=== PATIENT | male | born 1975 | race Hispanic/Latino ===

== ENCOUNTER 2019-03-06 17:41 | Emergency (ER) | payer SELFPAY ==
[~2019-03-06] VITALS: Ht 165.1 cm; Wt 94.4 kg
[2019-03-06 18:40] LABS: HEMATOCRIT 44.8 % (39.0-50.0); HEMOGLOBIN 15.3 g/dl (14.0-18.0); IMMATURE GRANULOCYTES 0.4 % (0.0-5.0); MEAN CELL VOLUME 92.2 fL CALC (80.0-100.0); MEAN CORPUSCULAR HGB 31.5 pG CALC (26.0-32.0); MEAN CORPUSCULAR HGB CONC 34.2 g/L CALC (32.0-36.0); NEUT# 7.91 thou/uL (1.82-7.42); RED BLOOD COUNT 4.86 mill/uL (4.70-6.10); RED CELL DISTRI WIDTH 13.2 % (11.5-15.5)
[2019-03-06 18:46] LABS: ALBUMIN 4.5 g/dL (3.2-5.0); ALKALINE PHOSPHATASE 73 u/l (38-126); AMYLASE 77 u/l (30-110); ANION GAP 14 (6-22 (CALC)); BILIRUBIN, TOTAL 0.6 mg/dL (0.0-1.4); BUN 15 mg/dL (9-20); BUN/CREATININE RATIO 18 (12-20 (CALC)); CARBON DIOXIDE 28 mmol/l (22-30); CHLORIDE 101 mmol/l (95-108); CREATININE 0.8 mg/dL (0.7-1.3); ETHYL ALCOHOL 0 mg/dl (0-30); GFR > 60 ML/MIN (>=60 (CALC)); GFR FOR AFR.AMER. > 60 ML/MIN (>=60 (CALC)); LIPASE 97 u/l (23-300); POTASSIUM 3.9 mmol/l (3.5-5.1); SGOT/AST 37 u/l (17-59); SODIUM 139 mmol/l (137-146); TOTAL PROTEIN 7.7 g/dL (6.3-8.2)
[2019-03-06 18:57] LABS: MYOGLOBIN 56 ng/mL (0 - 121)
[2019-03-06 20:33] LABS: URINE BILIRUBIN - DIPSTICK NEGATIVE (NEGATIVE); URINE BLOOD DIPSTICK NEGATIVE (NEGATIVE); URINE COLOR YELLOW; URINE GLUCOSE - DIPSTICK NEGATIVE (NEGATIVE); URINE KETONE NEGATIVE (NEGATIVE); URINE LEUK ESTERASE NEGATIVE (NEGATIVE); URINE NITRITE - DIPSTICK NEGATIVE (Negative); URINE PH 5.5 (4.5-8.0); URINE PROTEIN - DIPSTICK NEGATIVE (NEG-TRACE); URINE UROBILINOGEN - DIPSTICK 0.2 E.U./dL (0.2)
[2019-03-06 20:37] LABS: BARBITURATES NEGATIVE (NEGATIVE); COCAINE NEGATIVE (NEGATIVE); METHADONE NEGATIVE (NEGATIVE); OXCYCODONE NEGATIVE (NEGATIVE); TETRAHYDROCANNABIONOL NEGATIVE (NEGATIVE); TRICYLIC ANTIDEPRESSANTS NEGATIVE (NEGATIVE)
[2019-03-06] MEDS ORDERED: PROTONIX40 MG PO (20:45)
[2019-03-06 21:25] VITALS: BP 97/68
== END 2019-03-06 21:25 | disposition home or self-care (01) | DRG 392 ==
LOC: ED 17:41
DX: K29.70 Gastritis, unspecified, without bleeding (principal)

== ENCOUNTER 2019-10-01 08:42 | Emergency (ER) | payer SELFPAY ==
[~2019-10-01 08:42] MED LIST: PROTONIX40 MG PO
[2019-10-01 09:16] LABS: HEMATOCRIT 48.4 % (39.0-50.0); HEMOGLOBIN 16.5 g/dl (14.0-18.0); IMMATURE GRANULOCYTES 0.2 % (0.0-5.0); MEAN CELL VOLUME 92.4 fL CALC (80.0-100.0); MEAN CORPUSCULAR HGB 31.5 pG CALC (26.0-32.0); MEAN CORPUSCULAR HGB CONC 34.1 g/dL CAL (32.0-36.0); NEUT# 2.08 thou/uL (1.82-7.42); RED BLOOD COUNT 5.24 mill/uL (4.70-6.10)
[2019-10-01 09:33] LABS: ALBUMIN 4.3 g/dL (3.2-5.0); ALKALINE PHOSPHATASE 66 u/l (38-126); ANION GAP 12 (6-22 (CALC)); BILIRUBIN, TOTAL 0.5 mg/dL (0.0-1.4); BUN 9 mg/dL (9-20); BUN/CREATININE RATIO 12 (12-20 (CALC)); C-REACTIVE PROTEIN 0.9 mg/dL (0-0.9); CARBON DIOXIDE 24 mmol/l (22-30); CHLORIDE 105 mmol/l (95-108); CREATININE 0.8 mg/dL (0.7-1.3); GFR > 60 ML/MIN (>=60 (CALC)); GFR FOR AFR.AMER. > 60 ML/MIN (>=60 (CALC)); LIPASE 132 u/l (23-300); POTASSIUM 4.1 mmol/l (3.5-5.1); SGOT/AST 56 u/l (17-59); SODIUM 137 mmol/l (137-146); TOTAL PROTEIN 7.3 g/dL (6.3-8.2)
[2019-10-01 09:35] LABS: URINE BILIRUBIN - DIPSTICK NEGATIVE (NEGATIVE); URINE BLOOD DIPSTICK NEGATIVE (NEGATIVE); URINE COLOR YELLOW; URINE GLUCOSE - DIPSTICK NEGATIVE (NEGATIVE); URINE KETONE NEGATIVE (NEGATIVE); URINE LEUK ESTERASE NEGATIVE (NEGATIVE); URINE NITRITE - DIPSTICK NEGATIVE (Negative); URINE PH 7.5 (4.5-8.0); URINE PROTEIN - DIPSTICK 30 mg/dL (NEG-TRACE); URINE UROBILINOGEN - DIPSTICK 0.2 E.U./dL (0.2)
[2019-10-01 09:36] LABS: URINE RBC 0-2 RBC/hpf (0-5); URINE WBC 0-2 WBC/hpf (0-5)
[2019-10-01 11:00] VITALS: BP 128/80
--- NOTE | 2019-10-04 12:40 | NUR ---
Notified patient of postive Covid results via cmm programmer Pedro Pablo Craft. Advised patient to stay at home under quarantine until the [facility] contacts him with further instructions. Advised patient to return to ED with elevated temperature or difficulty breathing. Patient verbalized understanding. Chart faxed to [facility] [phone].
== END 2019-10-01 11:15 | disposition home or self-care (01) | DRG 179 ==
LOC: ED 08:42
PROVIDERS: Family Medicine
DX: U07.1 COVID-19 (principal)

== ENCOUNTER 2020-09-27 12:15 | Emergency (ER) | payer SELFPAY ==
[~2020-09-27] VITALS: Ht 165.1 cm; Wt 94.0 kg
[2020-09-27] MEDS ORDERED: PROTONIX20 M1 PO (12:50)
[2020-09-27 13:20] LABS: HEMATOCRIT 49.4 % (39.0-50.0); HEMOGLOBIN 16.5 g/dl (14.0-18.0); IMMATURE GRANULOCYTES 0.5 % (0.0-5.0); MEAN CELL VOLUME 93.7 fL CALC (80.0-100.0); MEAN CORPUSCULAR HGB 31.3 pG CALC (26.0-32.0); MEAN CORPUSCULAR HGB CONC 33.4 g/dL CAL (32.0-36.0); NEUT# 14.4 thou/uL (1.82-7.42); RED BLOOD COUNT 5.27 mill/uL (4.70-6.10); RED CELL DISTRI WIDTH 13.2 % (11.5-15.5)
[2020-09-27 13:23] LABS: URINE BILIRUBIN - DIPSTICK NEGATIVE (NEGATIVE); URINE BLOOD DIPSTICK NEGATIVE (NEGATIVE); URINE COLOR YELLOW; URINE GLUCOSE - DIPSTICK NEGATIVE (NEGATIVE); URINE KETONE NEGATIVE (NEGATIVE); URINE LEUK ESTERASE NEGATIVE (NEGATIVE); URINE PH 6.5 (4.5-8.0); URINE PROTEIN - DIPSTICK 100 mg/dL (NEG-TRACE); URINE SPECIFIC GRAVITY 1.025
[2020-09-27 13:27] LABS: URINE EPITHELIAL CELLS FEW EPI/hpf (0-FEW); URINE MUCUS MODERATE hpf (NONE-FEW); URINE NITRITE - DIPSTICK NEGATIVE (Negative)
[2020-09-27 13:34] LABS: ALBUMIN 4.6 g/dL (3.2-5.0); ALKALINE PHOSPHATASE 65 u/l (38-126); AMYLASE 105 u/l (30-110); ANION GAP 12 (6-22 (CALC)); BUN 15 mg/dL (9-20); BUN/CREATININE RATIO 22 (12-20 (CALC)); CARBON DIOXIDE 28 mmol/l (22-30); CHLORIDE 100 mmol/l (95-108); CREATININE 0.7 mg/dL (0.7-1.3); ETHYL ALCOHOL 0 mg/dl (0-30); GFR > 60 ML/MIN (>=60 (CALC)); GFR FOR AFR.AMER. > 60 ML/MIN (>=60 (CALC)); LIPASE 82 u/l (23-300); POTASSIUM 3.8 mmol/l (3.5-5.1); SGOT/AST 94 u/l (17-59); SODIUM 136 mmol/l (137-146); TOTAL PROTEIN 8.6 g/dL (6.3-8.2)
[2020-09-27 13:35] LABS: BILIRUBIN, TOTAL 0.8 mg/dL (0.0-1.4)
[2020-09-27] MEDS ORDERED: ZOFRAN4 MG/TAB PO (15:59)
[2020-09-27] MEDS ORDERED: ULTRAM50 MG PO (15:59)
[2020-09-27] MEDS ORDERED: PEPCID20 MG PO (15:59)
[2020-09-27 16:01] VITALS: BP 128/72
== END 2020-09-27 16:07 | disposition home or self-care (01) | DRG 392 ==
LOC: ED 12:15
DX: K29.70 Gastritis, unspecified, without bleeding (principal); M54.9 Dorsalgia, unspecified; Z20.822 Contact with and (suspected) exposure to COVID-19
CPT/HCPCS: Q9967

== ENCOUNTER 2020-09-28 14:07 | Observation (INO) | payer SELFPAY ==
[~2020-09-28] VITALS: Ht 165.1 cm; Wt 90.0 kg
[~2020-09-28 14:07] MED LIST changes: +PEPCID20 MG PO; +PROTONIX20 M1 PO; +ULTRAM50 MG PO; +ZOFRAN4 MG/TAB PO
--- NOTE | 2020-09-28 14:40 | NUR ---
RESTING ON STRETCHER. CALL HUNTER WITHIN REACH.
[2020-09-28 15:10] LABS: HEMATOCRIT 47.3 % (39.0-50.0); HEMOGLOBIN 16.1 g/dl (14.0-18.0); IMMATURE GRANULOCYTES 0.5 % (0.0-5.0); MEAN CELL VOLUME 92.2 fL CALC (80.0-100.0); MEAN CORPUSCULAR HGB 31.4 pG CALC (26.0-32.0); NEUT# 15.24 thou/uL (1.82-7.42); RED BLOOD COUNT 5.13 mill/uL (4.70-6.10); RED CELL DISTRI WIDTH 13.2 % (11.5-15.5)
--- NOTE | 2020-09-28 15:30 | NUR ---
RESTING ON STRETCHER. CALL HUNTER WITHIN REACH.
[2020-09-28 15:48] LABS: ALBUMIN 4.4 g/dL (3.2-5.0); ALKALINE PHOSPHATASE 60 u/l (38-126); ANION GAP 13 (6-22 (CALC)); BUN 8 mg/dL (9-20); BUN/CREATININE RATIO 12 (12-20 (CALC)); CARBON DIOXIDE 28 mmol/l (22-30); CHLORIDE 95 mmol/l (95-108); CREATININE 0.7 mg/dL (0.7-1.3); GFR > 60 ML/MIN (>=60 (CALC)); GFR FOR AFR.AMER. > 60 ML/MIN (>=60 (CALC)); LIPASE 77 u/l (23-300); POTASSIUM 3.3 mmol/l (3.5-5.1); SGOT/AST 37 u/l (17-59); SODIUM 133 mmol/l (137-146); TOTAL PROTEIN 7.7 g/dL (6.3-8.2)
--- NOTE | 2020-09-28 16:30 | NUR ---
RESTING ON STRETCHER. CALL HUNTER WITHIN REACH. AWAITING DISPO
--- NOTE | 2020-09-28 17:07 | NUR ---
MLP at bedside to discuss clinical findings with pt
--- NOTE | 2020-09-28 17:30 | NUR ---
PT RESTING ON STRETCHER. CALL HUNTER WITHIN REACH.
--- NOTE | 2020-09-28 18:33 | NUR ---
SBAR PRINTED TO FLOOR
--- NOTE | 2020-09-28 18:37 | NUR ---
ATTEMPTED TO CALL REPORT TO [facility]. NO ANSWER
--- NOTE | 2020-09-28 18:52 | NUR ---
REPORT GIVEN TO PACO ODONNELL TO BE TRANSFERRED TO FLOOR
--- NOTE | 2020-09-28 19:05 | NUR ---
PT ARRIVES TO UNIT VIA WHEELCHAIR, ACCOMPANIED BY Mike RANKIN LPN @ [phone]. PT TPP ROOM [id number].
[2020-09-28 19:30] VITALS: BP 112/77
--- NOTE | 2020-09-28 19:30 | NUR ---
ADMISSION AND ASSESMENT COMPLETE, SEE ADMISSION ASSESMENT. PT REPORTS ABD PAIN 12/18. DENIES N/V/D. LAST BM 09/27 IN AM. PT DESCRIBES "NORMAL". TELEMETRY #[id number] ON PT. R-AC #20G INTACT AND SALINE LOCKED. PT ORIENTED TO UNIT, ROOM AND PLAN OF CARE. PT ONLY REQUESTING ANALGESIC MEDICATION, DENIES FURTHER NEEDS AT THIS TIME. PT MADE AWARE PROVIDER WOULD NEED TO BE CONTACTED FOR ANALGESIC ORDER. PT VERBALIZES UNDERSTANDING. CALL HUNTER WITHIN REACH, PT AGREES TO CALL PRN. BED LOCKED IN LOW POSITION WITH BEDRAILS UP X2.
--- NOTE | 2020-09-28 19:35 | NUR ---
DR. BUSTOS CONTACTED FOR FURTHER ORDERS AND WITH PT ASSESMENT INFORMATION. CPOE ORDERS PENDING PER DR. BUSTOS.
--- NOTE | 2020-09-28 20:20 | NUR ---
PT APPEARS TO HAVE FALLEN ASLEEP, EYES CLOSED, GENTLY SNORING. WAKES EASILY TO VERBAL STIMULI. SCHEDULED MEDICATION ADMINISTERED, SEE E-MAR. 9% NACL @100ML/H INFUSION INITIATED TO R-AC #20G. SEE E-MAR. SITE PATENT. MORPHINE 2MG IV ADMINISTERED FOR REPORTED ABDOMINAL PAIN, RATED 8/10 BY PT. SEE E-MAR. EDUCATION PROVIDED ON ALL ADMINISTERED MEDICATIONS PRIOR TO ADMINISTRATION. PT VERBALIZES UNDERSTANDING.
--- NOTE | 2020-09-28 20:56 | NUR ---
PT APPEARS TO HAVE FALLEN ASLEEP AGAIN. LATING IN BED IN SEMIFOWLERS POSITION. GENTLY SNORING, RESPIRATIONS REGULAR AND UNLABORED, NO APPARENT DISTRESS. APPEARS COMFORTABLE. CALL HUNTER REMAINS WITHIN REACH.
[2020-09-28 23:45] VITALS: BP 127/77
--- NOTE | 2020-09-29 01:00 | NUR ---
PT APPEARS TO BE SLEEPING COMFORTABLY, LAYING IN BED WITH EYES CLOSED, RESPIRATIONS REGUALR AND UNLABORED, NO APPARENT DISTRESS. CALL HUNTER REMAINS WITHIN REACH.
[2020-09-29 04:00] VITALS: BP 117/65
--- NOTE | 2020-09-29 04:32 | NUR ---
MORPHINE ADMINISTERED FOR C/O ABD PAIN 12/18, SEE E-MAR.
--- NOTE | 2020-09-29 07:00 | NUR ---
RECIEVED REPORT FROM ANDRÉS BARRETO
[2020-09-29 07:16] VITALS: BP 127/72
--- NOTE | 2020-09-29 07:16 | NUR ---
PT RESTING IN SEMI FOWLERS POSITION. PT IS A/O X3 AND MOSTLY MALDIVIAN SPEAKING. ASSESSMENT AND VITALS COMPLETED. BP 127/72. HR 105, O2 92% ON ROOM AIR. RESPIRATIONS ARE EVEN AND UNLABORED WITH NO DISTRESS NOTED. LUNG SOUNDS ARE CLEAR. HEART RHYTHM IS NORMAL WITH TELE IN PLACE. BOWEL SOUNDS ARE HYPOACTIVE. RADIAL AND PEDAL PULSES ARE STRONG. #20G IN RAC INFUSING WITH IVF PER ORDER, SITE REMAINS HEALTHY AND PATENT. SKIN INTACT. PT COMPLAINS OF 9/10 LEFT ABD PAIN, PT TO BE MEDICATED PER EMAR. PT REQUEST FOR SOMETHING TO DRINK. PT EDUACTED ON DIET, ICE CHIPS GIVEN. PT VERBALIZED UNDERSTANDING. ALL SAFETY PRECAUTIONS ARE IN PLACE WITH CALL LIGHT IN REACH. WILL CONTINUE TO MONITOR.
--- NOTE | 2020-09-29 09:36 | NUR ---
DR BUSTOS AT BEDSIDE
--- NOTE | 2020-09-29 10:01 | NUR ---
FABRICATION INSPECTOR NOTIFIED OF HR IN 120'S AND 130'S BY ROSA RAMESH MONITOR. PT WALKING BACK FROM BATHROOM UPON ENTERING ROOM. PT COMPLAINS OF 8/10 RIGHT ABD PAIN. TORADOL ADMINISTERED. PT DENIES OF ANY OTHER NEEDS. ALL SAFETY PRCAUTIONS ARE IN PLACE WITH CALL LIGHT IN REACH. WILL CONTINUE TO MONITOR.
[2020-09-29 10:30] VITALS: BP 119/64
--- NOTE | 2020-09-29 10:36 | NUR ---
PANTOGRAPH ENGRAVER VICKI OF PT HR. NOTIFIED OF PT HR SUSTAINING IN 1TEENS. NO NEW ORDERS OBTAINED.
--- NOTE | 2020-09-29 10:48 | NUR ---
REASSESSMENT OF PAIN RESULTING IN 10/18. PT STATES TORADOL HAS HELPED.
--- NOTE | 2020-09-29 12:15 | NUR ---
PT SITTING UP IN RECYLINER WATCHING TV. REPSIRATIONS ARE EVEN AND UNLABORED WITH NO DISTRESS NOTE. #20G IN RAC INFUSING WITH IVF PER ORDER, SITE REMAINS HEALTHY AND PATENT. TELE MONITORING IN PLACE. PT DENIES OF ANY PAINS OR DISCOMFORTS AT THIS TIME. ALL SAFETY PRCAUTIONS ARE IN LACE WITH CALL LIGHT IN REACH. WILL CONTNUE TO MONITOR.
[2020-09-29 14:31] VITALS: BP 112/64
--- NOTE | 2020-09-29 16:14 | NUR ---
PT SITTING UP IN CHAIR. RESPIRAITONS ARE EVEN AND UNLABORED WITH NO DISTRESS NOTED. #20G IN RAC INFUSING WITH IVF PER ORDER, SITE REMAINS HEALTHY AND PATENT. PT DENIES OF ANY PAINS OR DISCOMFORTS AT THIS TIME. ALL SAFETY PRECAUTIONS ARE IN PLACE WITH CALL LIGHT IN REACH. WILL CONTINUE TO MONITOR.
--- NOTE | 2020-09-29 19:18 | NUR ---
PT AWAKE WATCHING TV, DENIES PAIN AT THIS TIME. PT REPORTS BEING FINISHED WITH DINNER TRAY, 50% OF FOOD INTAKE, TOLERATING WELL. DENIES ANY NEEDS AT THIS TIME. CALL LIGHT AT SIDE W/IN REACH AND PT HAS BEEN ENCOURAGED TO CALL NEEDS ARISE, VERBALIZED UNDERSTANDING.
[2020-09-29 19:30] VITALS: BP 110/68
--- NOTE | 2020-09-29 23:30 | NUR ---
MACHINED PARTS METAL SPRAYER REPORTED LOW BP ON PT AND PAIN 3/10 ON PAIN SCALE. MANUAL BP ASSESSED BY HADOOP INFRASTRUCTURE ARCHITECT TO BE 98/65. WILL WAIT AND REASSESS BP FOR PAIN MEDICATION.
--- NOTE | 2020-09-29 23:42 | NUR ---
PT WAS SLEEPING BUT AWOKE TO MY ENTERING THE ROOM. REPORTS PAIN AT 3/10 ON R.SIDE OF FLANK. IVF REPLENISHED AT THIS TIME. FUTURES TRADER IN ROOM OBTAINING V/S AT THIS TIME. PT DENIES ANY NEEDS AT THIS TIME.
[2020-09-29 23:50] VITALS: BP 98/65
[2020-09-30] VITALS: BP 98/65
[2020-09-30 00:38] VITALS: BP 102/64
--- NOTE | 2020-09-30 01:10 | NUR ---
PT BROUGHT TO MED SURG BY DATABASE DESIGN ANALYST ANDRÉS AND MED SURG ORTHOPEDIC PHYSICIAN. WE TRANSFERRED HER FROM THE STRETCHER TO THE BED. PT TOLERATED WELL. SHE C/O PAIN UPON MOVING R.ARM, SENSATIVE TO MOVEMENT IN R.SHOULDER SHE REPORTS. DATABASE DESIGN ANALYST DISCUSSED MED HISTORY AND PRESENT COMPLAINTS WITH DAUGHTER WHILE IN THE ED TO PICK PT UP TO TRANSFER TO THE FLOOR. PT ASSESSED AT THIS TIME AND V/S OBTAINED. NEURO'S APPEAR TO BE INTACT, NON DESTRUCTIVE TESTING SPECIALIST ARE MODERATE, BUT EQUAL, EQUAL MOVEMENT TO BLE W/OUT DRIFT. PUPILS EQUAL AND REACTIVE. NO VISIBLE DROOP TO MOUTH AND EYEBROWS APPEAR TO BE SEMETRICAL. PT LOCX4 AT THIS TIME. WILL OBTAIN TRANSLATION FROM ANDRÉS BARRETO [facility] STAFF NEEDED.
--- NOTE | 2020-09-30 02:26 | NUR ---
PT APPEARS TO BE SLEEPING, SONOROUS SOUNDS COMING FROM PT. RESP NON-LABORED. NO S/O DISTRESS NOTED.
[2020-09-30 04:00] VITALS: BP 97/61
--- NOTE | 2020-09-30 04:50 | NUR ---
V/S ASSESSED, PT WAS SLEEPING. NO S/O DISTRESS NOTED. CALL LIGHT AT SIDE AND PT ENCOURAGED TO CALL NEEDS ARISE.
--- NOTE | 2020-09-30 06:11 | NUR ---
PT REPORTS PAIN 2/10 ON PAIN SCALE IN R.FLANK
[2020-09-30 07:11] VITALS: BP 104/66
--- NOTE | 2020-09-30 07:11 | NUR ---
PATIENT AWAKE AND SITTING UP IN BED AT THIS TIME. PATIENT WHEN ASKED DENIES ANY PAIN AND STATES HIS PAIN IS A "0" OUT OF A PAIN SCALE OF 0-10. SKIING TEACHER DONE AT THIS TIME SEE INTERVENTIONS. TELE IN PLACE AND BEING MONITORED BY ED. PATIENT STATES "I WANT TO GO HOME TODAY". BOWEL SOUNDS ARE PRESENT IN ALL FOUR QUADRANTS AND ARE HYPOACTIVE. SIDERAILS ARE UP X 2 AND CALL LIGHT IS WITHIN REACH.
[2020-09-30 10:04] LABS: HEMATOCRIT 45.1 % (39.0-50.0); HEMOGLOBIN 15.2 g/dl (14.0-18.0); MEAN CELL VOLUME 94.4 fL CALC (80.0-100.0); MEAN CORPUSCULAR HGB 31.8 pG CALC (26.0-32.0); MEAN CORPUSCULAR HGB CONC 33.7 g/dL CAL (32.0-36.0); RED BLOOD COUNT 4.78 mill/uL (4.70-6.10); RED CELL DISTRI WIDTH 13.5 % (11.5-15.5)
[2020-09-30 10:18] LABS: ALBUMIN 3.6 g/dL (3.2-5.0); ALKALINE PHOSPHATASE 71 u/l (38-126); ANION GAP 12 (6-22 (CALC)); BILIRUBIN, TOTAL 0.6 mg/dL (0.0-1.4); BUN 16 mg/dL (9-20); BUN/CREATININE RATIO 20 (12-20 (CALC)); CARBON DIOXIDE 25 mmol/l (22-30); CHLORIDE 104 mmol/l (95-108); CREATININE 0.8 mg/dL (0.7-1.3); GFR > 60 ML/MIN (>=60 (CALC)); GFR FOR AFR.AMER. > 60 ML/MIN (>=60 (CALC)); POTASSIUM 3.6 mmol/l (3.5-5.1); SGOT/AST 26 u/l (17-59); SODIUM 137 mmol/l (137-146); TOTAL PROTEIN 7.1 g/dL (6.3-8.2)
[2020-09-30 10:20] VITALS: BP 107/66
[2020-09-30] MEDS ORDERED: IBUPROFEN600 MG PO (10:26)
[2020-09-30] MEDS ORDERED: MEDDOSEPAK PO (10:26)
[2020-09-30] MEDS ORDERED: ZITHROMAX500 MG PO (10:27)
--- NOTE | 2020-09-30 11:04 | NUR ---
Discharge instructions given. Patient verbalizes understanding of same. Discharged in stable condition via Ambulatory to Home with *Other. All belongings sent with pt. PATIENT D/C AT THIS TIME PATIENT TELE REMOVED AND ED NOTIFIED. IV CATH REMOVED AND CANNULA TIP INTACT. PATIENT VERBALIZES UNDERSTANDING OF DC INSTRUCTIONS.
== END 2020-09-30 11:04 | disposition home or self-care (01) | DRG 206 ==
LOC: ED 14:07 → ED-I 17:23 → ED 18:07 → MS2 18:08
PROVIDERS: ADMIT Internal Medicine; ATTEND Internal Medicine
DX: M94.0 Chondrocostal junction syndrome [Tietze] (principal); J98.11 Atelectasis; D72.829 Elevated white blood cell count, unspecified; Z20.822 Contact with and (suspected) exposure to COVID-19
CPT/HCPCS: G0378; J1650

== ENCOUNTER 2021-08-10 10:10 | Emergency (ER) | payer SELFPAY ==
[2021-08-10] VITALS (18 sets, daily range): BP systolic 118–172; BP diastolic 69–116
[~2021-08-10] VITALS: Ht 165.1 cm; Wt 104.0 kg
[~2021-08-10 10:10] MED LIST changes: +IBUPROFEN600 MG PO; +MEDDOSEPAK PO; +ZITHROMAX500 MG PO
[2021-08-10 11:18] LABS: HEMATOCRIT 46.8 % (39.0-50.0); HEMOGLOBIN 16.1 g/dl (14.0-18.0); IMMATURE GRANULOCYTES 0.1 % (0.0-5.0); MEAN CELL VOLUME 94.7 fL CALC (80.0-100.0); MEAN CORPUSCULAR HGB 32.6 pG CALC (26.0-32.0); MEAN CORPUSCULAR HGB CONC 34.4 g/dL CAL (32.0-36.0); NEUT# 13.19 thou/uL (1.82-7.42); RED BLOOD COUNT 4.94 mill/uL (4.70-6.10); RED CELL DISTRI WIDTH 12.8 % (11.5-15.5)
[2021-08-10 11:40] LABS: ACT PARTIAL THROMBO TIME 24.3 SECONDS (20.0-32.5); PROTHROMBIN TIME 10.4 SECONDS (9.0-12.5)
[2021-08-10 11:41] LABS: ALBUMIN 4.2 g/dL (3.2-5.0); ALKALINE PHOSPHATASE 59 u/l (38-126); AMYLASE 88 u/l (30-110); ANION GAP 13 (6-22 (CALC)); BILIRUBIN, TOTAL 0.6 mg/dL (0.0-1.4); BUN 11 mg/dL (9-20); BUN/CREATININE RATIO 15 (12-20 (CALC)); CARBON DIOXIDE 25 mmol/l (22-30); CHLORIDE 103 mmol/l (95-108); CREATININE 0.7 mg/dL (0.7-1.3); ETHYL ALCOHOL 0 mg/dl (0-30); GFR > 60 ML/MIN (>=60 (CALC)); GFR FOR AFR.AMER. > 60 ML/MIN (>=60 (CALC)); LIPASE 70 u/l (23-300); POTASSIUM 3.7 mmol/l (3.5-5.1); SGOT/AST 42 u/l (17-59); SODIUM 136 mmol/l (137-146); TOTAL PROTEIN 7.5 g/dL (6.3-8.2)
[2021-08-10 11:47] LABS: URINE BILIRUBIN - DIPSTICK NEGATIVE (NEGATIVE); URINE BLOOD DIPSTICK TRACE-INTACT (NEGATIVE); URINE GLUCOSE - DIPSTICK NEGATIVE (NEGATIVE); URINE KETONE NEGATIVE (NEGATIVE); URINE LEUK ESTERASE NEGATIVE (NEGATIVE); URINE PH 6.5 (4.5-8.0); URINE PROTEIN - DIPSTICK 100 mg/dL (NEG-TRACE); URINE SPECIFIC GRAVITY >=1.030; URINE UROBILINOGEN - DIPSTICK 0.2 E.U./dL (0.2)
[2021-08-10 11:50] LABS: URINE COLOR DK. YELLOW; URINE EPITHELIAL CELLS FEW EPI/hpf (0-FEW); URINE MUCUS MODERATE hpf (NONE-FEW); URINE NITRITE - DIPSTICK NEGATIVE (Negative); URINE RBC 0-2 RBC/hpf (0-5)
[2021-08-10] MEDS ORDERED: ZOFRAN4 MG/TAB PO (15:53)
[2021-08-10] MEDS ORDERED: LEVAQUIN750 M1 PO (15:53)
[2021-08-10] MEDS ORDERED: HYDROCO/APAP1 TA9 PO (15:53)
== END 2021-08-10 16:51 | disposition home or self-care (01) | DRG 444 ==
LOC: ED 10:10 → ED-I 15:30 → ED 16:51
DX: K81.9 Cholecystitis, unspecified (principal); U07.1 COVID-19; J10.1 Influenza due to other identified influenza virus with other respiratory manifestations
CPT/HCPCS: Q9967; S0164

== ENCOUNTER 2021-08-11 16:19 | Observation (INO) | payer SELFPAY ==
[~2021-08-11] VITALS: Ht 165.1 cm; Wt 91.0 kg
[2021-08-11] VITALS (12 sets, daily range): BP systolic 127–152; BP diastolic 76–94
[~2021-08-11 16:19] MED LIST changes: +HYDROCO/APAP1 TA9 PO; +LEVAQUIN750 M1 PO
[2021-08-11 17:32] LABS: HEMATOCRIT 46.6 % (39.0-50.0); IMMATURE GRANULOCYTES 0.3 % (0.0-5.0); MEAN CELL VOLUME 95.7 fL CALC (80.0-100.0); MEAN CORPUSCULAR HGB 32.9 pG CALC (26.0-32.0); MEAN CORPUSCULAR HGB CONC 34.3 g/dL CAL (32.0-36.0); NEUT# 6.73 thou/uL (1.82-7.42); RED BLOOD COUNT 4.87 mill/uL (4.70-6.10); RED CELL DISTRI WIDTH 12.9 % (11.5-15.5)
[2021-08-11 17:47] LABS: ALBUMIN 4.4 g/dL (3.2-5.0); ALKALINE PHOSPHATASE 53 u/l (38-126); AMYLASE 103 u/l (30-110); ANION GAP 14 (6-22 (CALC)); BILIRUBIN, TOTAL 0.7 mg/dL (0.0-1.4); BUN 14 mg/dL (9-20); BUN/CREATININE RATIO 18 (12-20 (CALC)); CARBON DIOXIDE 23 mmol/l (22-30); CHLORIDE 104 mmol/l (95-108); CREATININE 0.8 mg/dL (0.7-1.3); GFR > 60 ML/MIN (>=60 (CALC)); GFR FOR AFR.AMER. > 60 ML/MIN (>=60 (CALC)); LIPASE 452 u/l (23-300); POTASSIUM 4.4 mmol/l (3.5-5.1); SGOT/AST 39 u/l (17-59); SODIUM 137 mmol/l (137-146); TOTAL PROTEIN 7.6 g/dL (6.3-8.2)
[2021-08-12] VITALS (8 sets, daily range): BP systolic 105–125; BP diastolic 64–77
[2021-08-13] VITALS (9 sets, daily range): BP systolic 102–129; BP diastolic 58–75
[2021-08-13 05:41] LABS: HEMOGLOBIN 15.8 g/dl (14.0-18.0); MEAN CELL VOLUME 96.7 fL CALC (80.0-100.0); MEAN CORPUSCULAR HGB 32.5 pG CALC (26.0-32.0); MEAN CORPUSCULAR HGB CONC 33.6 g/dL CAL (32.0-36.0); RED BLOOD COUNT 4.86 mill/uL (4.70-6.10); RED CELL DISTRI WIDTH 12.9 % (11.5-15.5)
[2021-08-13 06:16] LABS: ALKALINE PHOSPHATASE 54 u/l (38-126); ANION GAP 10 (6-22 (CALC)); BUN 8 mg/dL (9-20); BUN/CREATININE RATIO 10 (12-20 (CALC)); CARBON DIOXIDE 23 mmol/l (22-30); CHLORIDE 106 mmol/l (95-108); CREATININE 0.8 mg/dL (0.7-1.3); GFR > 60 ML/MIN (>=60 (CALC)); GFR FOR AFR.AMER. > 60 ML/MIN (>=60 (CALC)); POTASSIUM 3.8 mmol/l (3.5-5.1); SODIUM 135 mmol/l (137-146)
[2021-08-13 06:25] LABS: ALBUMIN 3.2 g/dL (3.2-5.0); SGOT/AST 78 u/l (17-59)
[2021-08-14 04:07] VITALS: BP 112/75
[2021-08-14 05:47] LABS: HEMATOCRIT 42.4 % (39.0-50.0); HEMOGLOBIN 14.4 g/dl (14.0-18.0); IMMATURE GRANULOCYTES 0.3 % (0.0-5.0); MEAN CELL VOLUME 96.8 fL CALC (80.0-100.0); MEAN CORPUSCULAR HGB 32.9 pG CALC (26.0-32.0); NEUT# 9.05 thou/uL (1.82-7.42); RED BLOOD COUNT 4.38 mill/uL (4.70-6.10)
[2021-08-14 06:09] LABS: ALBUMIN 3.2 g/dL (3.2-5.0); BILIRUBIN, TOTAL 0.8 mg/dL (0.0-1.4); TOTAL PROTEIN 6.1 g/dL (6.3-8.2)
[2021-08-14 08:00] VITALS: BP 121/74
[2021-08-14] MEDS ORDERED: PERCOCET 5/321 COMBO PO (12:30)
[2021-08-14 19:00] VITALS: BP 109/68
[2021-08-15 04:00] VITALS: BP 117/79
[2021-08-15 08:00] VITALS: BP 137/77
== END 2021-08-15 13:46 | disposition home or self-care (01) | DRG 419 ==
LOC: ED 16:19 → ED-I 17:55 → ED 18:05 → MS2 18:16
PROVIDERS: ADMIT Surgery; ATTEND Surgery
PROC: 0FT44ZZ Resection of Gallbladder, Percutaneous Endoscopic Approach (ICD-10-PCS; principal; 2021-08-12)
PROC: BF131ZZ Fluoroscopy of Gallbladder and Bile Ducts using Low Osmolar Contrast (ICD-10-PCS; 2021-08-12)
DX: K80.12 Calculus of gallbladder with acute and chronic cholecystitis without obstruction (principal); Z20.822 Contact with and (suspected) exposure to COVID-19
CPT/HCPCS: G0378; J0131; J1610; Q9967